=== PATIENT | male | born 1965 | race Caucasian/White ===

== ENCOUNTER 2018-01-08 11:40 | Day surgery (SDC) | payer OTHER ==
[2018-01-08] MEDS ORDERED: PROPOFOL 60 ML (15:38)
== END 2018-01-08 16:42 | disposition home or self-care (01) ==
LOC: GIL 11:40
DX: K92.1 Melena (principal); D12.2 Benign neoplasm of ascending colon; D12.5 Benign neoplasm of sigmoid colon; K57.90 Diverticulosis of intestine, part unspecified, without perforation or abscess without bleeding; E11.9 Type 2 diabetes mellitus without complications; I10 Essential (primary) hypertension; E78.5 Hyperlipidemia, unspecified
CPT/HCPCS: 45380; 82962; 88305